=== PATIENT | female | born 1980 | race Caucasian/White ===

== ENCOUNTER 2024-06-21 19:23 | Emergency (ER) | payer BC ==
[2024-06-21 19:59] VITALS: RESP 18; TEMP 95.7
--- NOTE | 2024-06-21 20:37 | ERPHSYRPT ---
- History of Present Illness Time Seen by Provider: 06/21/24 20:20 Historian: patient Exam Limitations: no limitations Patient Subjective Stated Complaint: pt states she was at a work conference and began to get nausous. pt states that she has been vomiting and has diarrhea Triage Nursing Assessment: pt came into the er via wheelchair; pt transferred to cot per self; pt is axo x4; c/o N/V/D; pt states 4/10 abd pain; pt states pain is epigastric pain; active bowel sounds in all quads; abd soft, round; skin PDW; no respiratory distress present; vials wnl Physician History: The patient presents with a chief complaint of severe chest pain, which they describe as the worst they have ever experienced. The pain was associated with a prolonged episode of vomiting, lasting approximately five minutes. The patient also reports experiencing cold sweats and bilateral arm numbness and tingling during the episode. The severity of the pain was such that it led to screaming, despite the patient's self-reported high pain tolerance. The pain has since subsided somewhat but remains present. The patient has a history of similar, albeit less severe, episodes in the past, with the most recent episode occurring a few months prior. They also report a long-standing history of acid reflux and esophageal narrowing, for which they have undergone multiple esophageal dilations in the past. However, they have not been under the care of a fire control technician g for some time. The patient has recently started on new medications, including ceftolozane and a beta-osvaldo beginning with 'P.' They also report being on a GLP-1 agonist, which they have not taken for the past two weeks. The patient has been experiencing diarrhea but denies any hematemesis. The patient also reports irregular bowel movements, although they have been more regular in the past week due to medication. They express a desire for antiemetic treatment but decline analgesics due to previous experiences of pruritus with these medications. Timing/Duration: today Activities at Onset: rest Quality: sharpness, stabbing Abdominal Pain Onset Location: epigastric Pain Radiation: no radiation Severity of Pain-Max: severe Severity of Pain-Current: moderate Modifying Factors: Improves With: nothing. Worsens With: eating, palpation, vomiting Associated Symptoms: diaphoresis, loss of appetite, nausea, vomiting, No back, No chest pain, No neck pain, No rash, No shortness of breath Previous symptoms: no prior history Allergies/Adverse Reactions: acetaminophen [From Darvocet-N] Allergy (Verified 06/21/24 19:41) Itching propoxyphene [From Darvocet-N] Allergy (Verified 06/21/24 19:41) Itching Home Medications: Cetirizine HCl [Zyrtec] 10 mg PO DAILY 06/21/24 [History] Famotidine 40 mg PO DAILY 06/21/24 [History] Lisinopril/Hydrochlorothiazide [Lisinopril-Hctz 20-12.5 mg Tab] 1 each PO DAILY 06/21/24 [History] Omeprazole 40 mg PO DAILY 06/21/24 [History] Phentermine HCl 37.5 mg PO DAILY 06/21/24 [History] Potassium Chloride [Klor-Con M20] 20 meq PO BID 06/21/24 [History] Propranolol HCl 10 mg PO DAILY 06/21/24 [History] Sertraline HCl [Zoloft] 25 mg PO DAILY 06/21/24 [History] Hx Tetanus, Diphtheria Vaccination/Date Given: Yes Hx Influenza Vaccination/Date Given: Yes (2022) Hx Pneumococcal Vaccination/Date Given: No Immunizations Up to Date: No Travel Risk - International Travel Have you traveled outside of the country in past 3 weeks: No - Emerging Infectious Disease Are you exhibiting symptoms associated with any current EIDs: Yes Symptoms: Abdominal Pain, Diarrhea, Vomitting - Review of Systems All Other Systems: Reviewed and Negative - Past Medical History Pertinent Past Medical History: Yes Neurological History: Migraines ENT History: No Pertinent History Cardiac History: Hypertension Respiratory History: No Pertinent History Endocrine Medical History: No Pertinent History Musculoskeletal History: Osteoarthritis GI Medical History: GERD History: No Pertinent History Psycho-Social History: Depression Female Reproductive Disorders: No Pertinent History - Past Surgical History Past Surgical History: Yes Neuro Surgical History: No Pertinent History Cardiac: No Pertinent History Respiratory: No Pertinent History Gastrointestinal: Cholecystectomy Genitourinary: No Pertinent History Musculoskeletal: No Pertinent History Female Surgical History: Other Other Surgical History: left ovary removed, multiple scopes - Female History Hx Last Menstrual Period: unk Hx Now: No - Social History Smoking Status: Never smoker Exposure to second hand smoke: No Drug Use: none - Social Determinants of Health Will the patient participate in the screening: Yes Do you worry about a steady place to live?: No Do you have any problems with any of the following?: No known problems In the past 12 months,have you had to go without utilities?: No Transportation Issues: No Has anyone in your support network made you feel unsafe?: No Have you or anyone in your house had to go without enough: No - Nursing Vital Signs Nursing Vital Signs: Initial Vital Signs Pulse Rate 83 06/21/24 19:41 Blood Pressure 138/56 06/21/24 19:41 O2 Sat by Pulse Oximetry 99 06/21/24 19:41 Pain Scale Pain Intensity 0 - Physical Exam General Appearance: no apparent distress Eye Exam: eyes nml inspection Ears, Nose, Throat Exam: normal ENT inspection Neck Exam: normal inspection, non-tender, supple, full range of motion Respiratory Exam: normal breath sounds, lungs clear, airway intact, No respiratory distress Cardiovascular Exam: regular rate/rhythm, normal heart sounds, capillary refill <2 sec Gastrointestinal/Abdomen Exam: soft, tenderness (epigastric), No distention, No mass, No guarding, No rebound Back Exam: No CVA tenderness Extremity Exam: normal inspection, normal range of motion, No tenderness Neurologic Exam: alert, oriented x 3, cooperative Skin Exam: normal color, warm, dry, No rash SpO2 Interpretation: normal SpO2: 99 O2 Delivery: Room Air - Course Nursing assessment & vital signs reviewed: Yes EKG Interpreted by Me: RATE (82), Sinus Rhythm, NORMAL AXIS, NORMAL INTERVALS, NORMAL QRS, Other (nonspecific t wave abnormalities anterior leads) - CT Exams Abdomen/Pelvis CT Interpretation: Tele-radiologist Report, Other (punctate left renal stone) Ordered Tests: Medication Summary Discontinued Medications Generic Name Dose Route Start Last Admin Trade Name Giovana PRN Reason Stop Dose Admin Amoxicillin/Clavulanate Potassium 875 mg 06/21/24 22:48 06/21/24 22:53 Amox Tr/Potassium Clavulanate 875 Mg Tablet PO 06/21/24 22:49 875 mg STAT ONE Administration Amoxicillin/Clavulanate Potassium Confirm 06/21/24 22:52 Amox Tr/Potassium Clavulanate 875 Mg Tablet Administered 06/21/24 22:53 Dose 875 mg .ROUTE .STK-MED ONE Droperidol 1.25 mg 06/21/24 20:37 06/21/24 20:58 Droperidol 5 Mg/2 Ml Vial IV 06/21/24 20:38 1.25 mg STAT ONE Administration Droperidol Confirm 06/21/24 20:57 Droperidol 5 Mg/2 Ml Vial Administered 06/21/24 20:58 Dose 5 mg .ROUTE .STK-MED ONE Sodium Chloride 1,000 mls @ 999 mls/hr 06/21/24 20:37 06/21/24 21:59 Sodium Chloride 0.9% 1000 Ml IV 06/21/24 21:37 Infused .Q1H1M STA Infusion Sodium Chloride Confirm 06/21/24 20:57 Sodium Chloride 0.9% 1000 Ml Administered 06/21/24 20:58 Dose 1,000 mls @ ud .ROUTE .STK-MED ONE Metronidazole 500 mg 06/21/24 22:49 06/21/24 22:53 Metronidazole 500 Mg Tablet PO 06/21/24 22:50 500 mg STAT ONE Administration Metronidazole Confirm 06/21/24 22:52 Metronidazole 500 Mg Tablet Administered 06/21/24 22:53 Dose 500 mg .ROUTE .STK-MED ONE Lab/Rad Data: Laboratory Result Diagrams 06/21/24 20:45 06/21/24 20:45 Laboratory Results 06/21/24 06/21/24 06/21/24 Range/Units 21:58 21:58 20:45 WBC (3.98-10.04) x10^3/uL RBC (3.93-5.22) x10^6/uL Hgb (11.2-15.7) g/dL Hct (34.1-44.9) % MCV (79.4-94.8) fL MCH (25.6-32.2) pg MCHC (32.2-35.5) g/dL RDW (11.7-14.4) % Plt Count (182-369) x10^3/uL MPV (9.4-12.3) fL Gran % (34.0-71.1) % Immature Gran % (Auto) (0.001-0.429) % Nucleat RBC Rel Count (0.00-0.2) % Eos # (Auto) (0.04-0.36) x10^3/uL Immature Gran # (Auto) (0.001-0.031) x10^3u/L Absolute Lymphs (auto) (1.18-3.74) x10^3/uL Absolute Monos (auto) (0.24-0.86) x10^3/uL Absolute Nucleated RBC (0.00-0.012) x10^3u/L Lymphocytes % (19.3-51.7) % Monocytes % (4.7-12.5) % Eosinophils % (0.7-5.8) % Basophils % (0.1-1.2) % Absolute Granulocytes (1.56-6.13) x10^3/uL Basophils # (0.01-0.08) x10^3/uL Sodium (135-145) mmol/L Potassium (3.5-5.1) mmol/L Chloride (98-107) mmol/L Carbon Dioxide (22-30) mmol/L Anion Gap (5-15) MEQ/L BUN (7-17) mg/dL Creatinine (0.52-1.04) mg/dL Estimated GFR ML/MIN Glucose (74-106) mg/dL Lactic Acid (0.4-2.0) Calcium (8.4-10.2) mg/dL Total Bilirubin (0.2-1.3) mg/dL AST (14-36) U/L ALT (0-35) U/L Alkaline Phosphatase (38-126) U/L Troponin I < 0.012 (0.000-0.033) ng/mL Serum Total Protein (6.3-8.2) g/dL Albumin (3.5-5.0) g/dL Lipase (23-300) U/L Urine Color Yellow (Yellow) Urine Appearance Clear (Clear) Urine pH 5.5 (4.6-8.0) Ur Specific Se[place]our 1.025 (1.005-1.030) Urine Protein Trace A (Negative) Urine Glucose (UA) Negative (Negative) mg/dL Urine Ketones 15 A (Negative) Urine Blood Negative (Negative) Urine Nitrite Negative (Negative) Urine Bilirubin Negative (Negative) Urine Urobilinogen 0.2 (0.2) mg/dL Ur Leukocyte Esterase Trace A (Negative) U Hyaline Cast (Auto) 3-5 A (0-2) /LPF Urine Microscopic RBC 0-2 (0-5) /HPF Urine Microscopic WBC 3-5 (0-5) /HPF Ur Epithelial Cells Rare (None Seen) /HPF Urine Bacteria Rare A (None Seen) /HPF Urine Culture Reflexed NO (NO) Urine HCG, Qual NEGATIVE (NEGATIVE) 06/21/24 06/21/24 06/21/24 Range/Units 20:45 20:45 20:37 WBC 15.4 H (3.98-10.04) x10^3/uL RBC 4.61 (3.93-5.22) x10^6/uL Hgb 13.3 (11.2-15.7) g/dL Hct 40.3 (34.1-44.9) % MCV 87.4 (79.4-94.8) fL MCH 28.9 (25.6-32.2) pg MCHC 33.0 (32.2-35.5) g/dL RDW 12.6 (11.7-14.4) % Plt Count 399 H (182-369) x10^3/uL MPV 9.6 (9.4-12.3) fL Gran % 88.2 H (34.0-71.1) % Immature Gran % (Auto) 0.5 H (0.001-0.429) % Nucleat RBC Rel Count 0.0 (0.00-0.2) % Eos # (Auto) 0.07 (0.04-0.36) x10^3/uL Immature Gran # (Auto) 0.07 H (0.001-0.031) x10^3u/L Absolute Lymphs (auto) 0.94 L (1.18-3.74) x10^3/uL Absolute Monos (auto) 0.65 (0.24-0.86) x10^3/uL Absolute Nucleated RBC 0.00 (0.00-0.012) x10^3u/L Lymphocytes % 6.1 L (19.3-51.7) % Monocytes % 4.2 L (4.7-12.5) % Eosinophils % 0.5 L (0.7-5.8) % Basophils % 0.5 (0.1-1.2) % Absolute Granulocytes 13.59 H (1.56-6.13) x10^3/uL Basophils # 0.07 (0.01-0.08) x10^3/uL Sodium 137 (135-145) mmol/L Potassium 3.9 (3.5-5.1) mmol/L Chloride 105 (98-107) mmol/L Carbon Dioxide 22 (22-30) mmol/L Anion Gap 13.5 (5-15) MEQ/L BUN 20 H (7-17) mg/dL Creatinine 0.72 (0.52-1.04) mg/dL Estimated GFR 106.3 ML/MIN Glucose 103 (74-106) mg/dL Lactic Acid 1.2 (0.4-2.0) Calcium 8.9 (8.4-10.2) mg/dL Total Bilirubin 0.50 (0.2-1.3) mg/dL AST 29 (14-36) U/L ALT 19 (0-35) U/L Alkaline Phosphatase 36 L (38-126) U/L Troponin I (0.000-0.033) ng/mL Serum Total Protein 7.1 (6.3-8.2) g/dL Albumin 4.1 (3.5-5.0) g/dL Lipase 41 (23-300) U/L Urine Color (Yellow) Urine Appearance (Clear) Urine pH (4.6-8.0) Ur Specific [place] (1.005-1.030) Urine Protein (Negative) Urine Glucose (UA) (Negative) mg/dL Urine Ketones (Negative) Urine Blood (Negative) Urine Nitrite (Negative) Urine Bilirubin (Negative) Urine Urobilinogen (0.2) mg/dL Ur Leukocyte Esterase (Negative) U Hyaline Cast (Auto) (0-2) /LPF Urine Microscopic RBC (0-5) /HPF Urine Microscopic WBC (0-5) /HPF Ur Epithelial Cells (None Seen) /HPF Urine Bacteria (None Seen) /HPF Urine Culture Reflexed (NO) Urine HCG, Qual (NEGATIVE) - Progress Progress: improved Progress Note: Abdominal Pain with Vomiting Severe, acute onset pain in the epigastric region with associated vomiting. History of esophageal dilation for reflux and narrowing. Differential includes esophageal spasm, pancreatitis, and other gastrointestinal pathology. -Order labs to evaluate for pancreatitis and other potential causes. -Order CT scan of the abdomen to evaluate pancreas and other abdominal structures. -Administer Droperidol for nausea and pain. Gastroesophageal Reflux Disease (GERD) Long history of reflux and esophageal narrowing, with multiple prior dilations. No recent follow-up with gastroenterology. -Consider referral to gastroenterology for follow-up after acute issue is resolved. Nausea/Vomiting/Abd pain improved with Droperidol and IVF. No acute findings noted on CT, punctate renal stone noted. WBC elevated at 15, will treat for colitis with Augmentin and Flagyl. Zofran sent to pharmacy for as needed for nausea/vomiting. Counseled pt/family regarding: lab results, diagnosis, need for follow-up, rad results Medical Desision Making - Diagnostic Testing Diagnostic test were ordered, analyzed, and reviewed by me: Yes Radiological Interpretation: Interpreted by me, Reviewed by me, Teleradiologist Report - Risk of complications The pt has a mod risk of morbidity or mortality based on: Need for prescription drug management - Departure Departure Disposition: Home Clinical Impression: Gastroenteritis/colitis, infectious, Nausea and vomiting Condition: Good Critical Care Time: No Referrals: CATHY SCALES MD [Primary Care Provider] - Follow up/PCP as directed Instructions: Abdominal pain Prescriptions: Amox Tr/Potass Clav. 875 mg [Augmentin 875-125 Tablet] 875 mg PO BID 7 Days #13 tablet Metronidazole 500 mg [Flagyl 500 MG] 500 mg PO TID 7 Days #20 tablet ondansetron HCL [Zofran] 8 mg PO TID PRN 7 Days #21 tablet PRN Reason: Nausea
[2024-06-21] MEDS ORDERED: Sodium Chloride 0.9% 1000 ML 1,000 ML ONE (20:57)
[2024-06-21] MEDS: Sodium Chloride 0.9% 1000 ML 1,000 ML IV STA (20:58)
[2024-06-21 21:02] LABS: Absolute Neutrophil Ct (ANC) 13.59 x10^3/uL (1.56-6.13); BASOPHIL % 0.5 % (0.1-1.2); Basophil (Absolute #) 0.07 x10^3/uL (0.01-0.08); Eosinophil % 0.5 % (0.7-5.8); Eosinophil (Absolute #) 0.07 x10^3/uL (0.04-0.36); Hematocrit 40.3 % (34.1-44.9); Hemoglobin 13.3 g/dL (11.2-15.7); IMMATURE GRAN # 0.07 x10^3u/L (0.001-0.031); IMMATURE GRAN % 0.5 % (0.001-0.429); Lymphocyte (Absolute #) 0.94 x10^3/uL (1.18-3.74); Lymphocytes % 6.1 % (19.3-51.7); Mean Cell Volume 87.4 fL (79.4-94.8); Mean Corpuscular Hemoglobin 28.9 pg (25.6-32.2); Mean Platelet Volume 9.6 fL (9.4-12.3); Monocyte (Absolute #) 0.65 x10^3/uL (0.24-0.86); Monocytes % 4.2 % (4.7-12.5); Neutrophil % 88.2 % (34.0-71.1); Platelet Count 399 x10^3/uL (182-369); Red Blood Count 4.61 x10^6/uL (3.93-5.22); Red Cell Distribution Width 12.6 % (11.7-14.4); White Blood Count 15.4 x10^3/uL (3.98-10.04)
[2024-06-21 21:25] LABS: ALBUMIN 4.1 g/dL (3.5-5.0); ANION GAP 13.5 MEQ/L (5-15); BILIRUBIN,TOTAL 0.5 mg/dL (0.2-1.3); Calcium 8.9 mg/dL (8.4-10.2); Creatinine 1 0.72 mg/dL (0.52-1.04); EST GLOMERULAR FILTRATION RATE 106.3 ML/MIN; Potassium 3.9 mmol/L (3.5-5.1); Total Protein 7.1 g/dL (6.3-8.2)
[2024-06-21 22:09] LABS: HCG URINE TEST NEGATIVE (NEGATIVE)
[2024-06-21 22:17] LABS: Appearance Clear (Clear); Bacteria Rare /HPF (None Seen); Bilirubin Negative (Negative); Blood Negative (Negative); Epithelial Cells Rare /HPF (None Seen); Glucose, Urine Negative (Negative); Ketones 15 (Negative); Leukocyte Esterase Trace (Negative); Nitrite Negative (Negative); Ph 5.5 (4.6-8.0); Protein,Urine Dip Trace (Negative); RBC 0-2 /HPF (0-5); Specific Gravity 1.025 (1.005-1.030); Urobilinogen 0.2 mg/dL (0.2)
[2024-06-21] MEDS ORDERED: Augmentin 875-125 Tablet ONE (22:52)
[2024-06-21] MEDS ORDERED: Flagyl 500 MG ONE (22:52)
[2024-06-21] MEDS: Augmentin 875-125 Tablet PO ONE (22:53)
[2024-06-21] MEDS: Flagyl 500 MG PO ONE (22:53)
[2024-06-21 22:54] VITALS: PULSE 82
[2024-06-21 23:00] VITALS: BP 116/67
[2024-06-22 01:11] VITALS: O2SAT 99
--- NOTE | 2024-06-22 08:37 | XRAY ---
Indication: Pain. Multiple contiguous axial images obtained through the abdomen and pelvis without contrast. Comparison: None Lung bases clear. Heart not enlarged. Noncontrasted stomach and bowel loops appear nonobstructed. Normal appendix. Left kidney demonstrates nonobstructing punctate calculus. Previous colostomy. No free fluid/air. Remaining liver, pancreas, spleen, adrenal glands, kidneys, ureters, bladder, uterus, and aorta are unremarkable for noncontrast exam. 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 Impression: 1. Nonobstructing left renal punctate calculus and chronic bony findings. 2. Remaining CT abdomen/pelvis without contrast exam is negative.
== END 2024-06-21 23:06 | disposition home or self-care (01) ==
LOC: ED 19:23
DX: A09 Infectious gastroenteritis and colitis, unspecified (principal); R11.2 Nausea with vomiting, unspecified; R07.9 Chest pain, unspecified; R20.2 Paresthesia of skin; I10 Essential (primary) hypertension; Z79.899 Other long term (current) drug therapy
CPT/HCPCS: 36000; 36415; 74176; 80053; 81001; 81025; 83605; 83690; 84484; 85025; 93005; 96360; 96374; 99284; 99285; A9270-GY